=== PATIENT | male | born 1985 | race Caucasian/White ===

== ENCOUNTER 2020-11-13 14:29 | Outpatient (RCR) | payer MEDICARE, SELFPAY | END 2020-12-18 23:59 | LOC: IMMUN 14:29 | PROVIDERS: Visit Provider Family Medicine | DX: Z23 Encounter for immunization (principal) | CPT/HCPCS: 0001A; 0002A; 91300 ==

== ENCOUNTER 2022-02-17 13:09 | Emergency (ER) | payer OTHER, SELFPAY ==
[2022-02-17 13:11] VITALS: BP 146/115; PULSE 82; RESP 18; TEMP 36.6; O2SAT 100; BMI 28.7
--- NOTE | 2022-02-17 13:32 | EKG12_ITS ---
Test Reason : sob/cp Blood Pressure : / mmHG Vent. Rate : 078 BPM Atrial Rate : 078 BPM P-R Int : 140 ms QRS Dur : 096 ms QT Int : 356 ms P-R-T Axes : 037 050 020 degrees QTc Int : 405 ms Normal sinus rhythm with sinus arrhythmia Normal ECG Confirmed by RADHA RED, WILY ([id number]), newspaper managing editor SIERRA HOLLIS ([id number]) on 02/19/2022 9:41:01 AM Referred By: Tru Confirmed By:WILY GARCIA MD
--- NOTE | 2022-02-17 13:34 | EDS_ITS ---
HPI History of Present Illness Chief Complaint: Shortness of Breath Narrative Narrative: Patient presents with shortness of breath and chest pain that has had since 1030 last evening, over 12 hours ago. He is concerned because he states he has family history of heart attack in his father less than age 55. No exacerbating or alleviating factors. He states he felt short of breath mildly lightheaded and began having chest pain. He is a smoker. He denies any leg swelling. No DVT or PE risk factors. No fevers or chills. PFSH PFSH Medical History SOB (shortness of breath) Home Medications NK 02/17/22 [History Last Taken Unknown] Allergy/AdvReac Type Severity Reaction Status Date / Time Penicillins [PCN] Allergy PT UNSURE Verified 02/17/22 13:11 OF REACTION Social History Smoking Status: Unknown if ever smoked ROS ROS ED ROS Narrative Constitutional: No fever, no chills. HEENT: No sore throat. No neck pain. No loss of vision. No rhinorrhea. Cardiovascular: Positive chest pain. No palpitations. No pedal edema. Respiratory: Rare cough, positive shortness of breath. Abdominal: No abdominal pain. No nausea. No vomiting. Genitourinary: No dysuria. No hematuria. Musculoskeletal: No myalgias. No arthralgias. Neurologic: No headaches. No dizziness. No lightheadedness. Skin: No rash. No change in color. Psychiatric: No depression. No anxiety. EXAM Physical Exam Narrative Exam Narrative: Afebrile. Vital signs noted. HEENT: Normocephalic. Atraumatic. PERRL, EOMI. Neck soft and supple. No point tenderness or step off. Cardiovascular: Regular rate and rhythm. No murmurs, rubs, or gallops appreciated. Respiratory: No tachypnea. Lungs clear to auscultation bilaterally. Gastrointestinal: Abdomen soft, nontender, with normoactive bowel sounds. No rebound or guarding. Neurological: Awake. Alert. Nonfocal, nonlateralizing. Skin: No rash. Normal color. No pallor. Musculoskeletal: No pedal edema. Full range of motion extremities. Const Vital Signs: 02/17/22 13:11 02/17/22 13:34 02/17/22 15:18 Temperature 97.9 F Temperature Source Temporal Pulse Rate 82 100 Respiratory Rate 18 14 Blood Pressure 146/115 H Blood Pressure Mean 125 Pulse Ox 100 100 Oxygen Delivery Method Room Air Room Air Room Air MDM MDM MDM Narrative Medical decision making narrative: Chest pain work-up was pursued. EKG demonstrates normal sinus rhythm at 78 bpm with sinus arrhythmia but no acute ST changes. No STEMI. CBC is grossly normal with a normal white count and normal hemoglobin. D-dimer negative at less than 0.27. Electrolyte panel is grossly unremarkable. High-sensitivity troponin 4. This is greater than a 6-hour troponin. I do feel that he has been ruled out by biomarkers. Chest x-ray interpreted by myself shows no evidence of acute finding. There is no pneumothorax. At this point in time, I do feel he be discharged safely home with follow-up. He is to see his primary care physician. Smoking cessation was discussed. Disposition is discharged home in stable condition. Return instructions were reviewed. Lab Data Labs: Laboratory Results - last 24 hr 02/17/22 02/17/22 02/17/22 13:40 13:40 13:40 WBC 5.2 RBC 4.85 Hgb 14.8 Hct 42.6 MCV 87.8 MCH 30.5 MCHC 34.7 RDW Std Deviation 39.1 RDW Coeff of Rita 12.3 Plt Count 253 MPV 8.3 Immature Gran % (Auto) 0.400 Neut % (Auto) 58.0 Lymph % (Auto) 30.1 Hodgeman % (Auto) 8.2 Eos % (Auto) 2.5 Baso % (Auto) 0.8 Absolute Neuts (auto) 3.0 Absolute Lymphs (auto) 1.55 Nucleated RBC % 0 D-Dimer Quant (PE/DVT) < 0.27 L Sodium 139 Potassium 3.9 Chloride 105 Carbon Dioxide 29.0 Anion Gap 5 BUN 10 Creatinine 0.88 Estim Creat Clear Calc 122.13 Est GFR (MDRD) Af Amer 127 Est GFR (MDRD) Non-Af 105 BUN/Creatinine Ratio 11.4 Glucose 99 Calcium 8.8 Troponin I High Sens 4 Radiography Diagnostic Testing: Clinical Impression(s) from Imaging Studies Chest X-Ray 02/17/22 13:51 IMPRESSION: There are no acute findings. Electronically Signed: Nabil Goldstein MD at 14:18 EDT Reading Location ID and State: [facility] / [place] , Service support , Discharge Plan Triage Chief Complaint: Shortness of Breath Other Complaint: Cough Chest Pain Dizziness ED Provider: Usama Ott Dx/Rx/DC Orders Clinical Impression: SOB (shortness of breath), Chest pain Instructions: ED Chest Pain, Uncertain Cause, ED Dyspnea Prescriptions: No Action NK Primary Care Provider: MOSHE WARREN Referrals: NOT,DEFINED [Non-Staff] - Activity Restrictions/Additional Instructions: Stop smoking. Follow-up with your primary care physician for outpatient stress testing hopefully within the next week. Return with increased chest pain, shortness of breath, new or worsening symptoms. Disposition Disposition: Home, Self Care
--- NOTE | 2022-02-17 13:35 | NURSING ---
NO OLD EKGS
[2022-02-17] MEDS: Aspirin 81 MG TAB.CHEW 324 MG PO (13:39)
[2022-02-17 13:50] LABS: Absolute Lymphocyte Count 1.55 X10^3/uL (0.83-4.51); Basophil# 0.04 X10^3/uL; Basophil% 0.8 % (0-1); Eosinophil# 0.13 X10^3/uL; Eosinophils% 2.5 % (0-5); Hematocrit 42.6 % (40-54); Hemoglobin 14.8 g/dL (13.0-16.5); Lymphocyte # 1.55 X10^3/ul (0.83-4.51); Lymphocyte % 30.1 % (19-41); Mean Corp Hgb Conc 34.7 g/dL (32-36); Mean Corpuscular Hgb 30.5 pg (27.0-32.0); Mean Corpuscular Volume 87.8 fL (80-94); Mean Platelet Vol. 8.3 fl (6.2-12.0); Monocyte# 0.42 X10^3/uL; Monocyte% 8.2 % (0-10); NRBC Flagged by Analyzer 0 % (0-5); Neutrophil # 2.99 X10^3/uL (2.7-7.7); Platelet Count 253 K/mm3 (150-450); RBC Distribution Width CV 12.3 % (11.6-14.6); RBC Distribution Width SD 39.1 fl (35.1-43.9); Red Blood Count 4.85 M/mm3 (4.6-6.2); White Blood Count 5.2 K/mm3 (4.4-11.0)
--- NOTE | 2022-02-17 13:51 | RAD_ITS ---
STUDY: X-RAY CHEST REASON FOR EXAM: Male, 36 years old. CHEST PAIN chest pain TECHNIQUE: XR Chest 1 View COMPARISON: None FINDINGS: There is no demonstrated pleural abnormality. Normal size heart. Normal mediastinum and cory. Normal visualized pulmonary arteries. Normal visualized aortic arch and descending thoracic aorta. Normal visualized thoracic spine. Normal visualized ribs, clavicles, and shoulders. There is no demonstrated abnormality of the visualized soft tissue structures of the upper abdomen. RAD/Chest 1 View (Portable) IMPRESSION: There are no acute findings. Electronically Signed: Nabil Goldstein MD at 14:18 EDT ,
[2022-02-17 14:07] LABS: D-Dimer Quantitative (DVT/PE) < 0.27 FEU/ug/m (0.27-0.49)
[2022-02-17 14:09] LABS: Anion Gap 5 (5-15); BUN 10 mg/dL (7-18); BUN/Creat Ratio 11.4 RATIO (10-20); Calcium,Total 8.8 mg/dL (8.5-10.1); Chloride 105 mmol/L (98-107); Creatinine, Serum 0.88 mg/dL (0.70-1.30); EST Glomerular Filtration Rate 105 mL/min (>60); Est Glom Filt Rate - Afr Amer 127 mL/min (>60); Estimated Creatinine Clearance 122.13 ml/min; Glucose 99 mg/dL (74-106); Potassium 3.9 mmol/L (3.5-5.1); Sodium Level 139 mmol/L (136-145); Troponin-I HS (w/2H Reflex) 4 pg/mL (3.0-78.0)
[2022-02-17 15:18] VITALS: PULSE 100; RESP 14; O2SAT 100
--- NOTE | 2022-02-17 15:27 | ED.RN ---
PT REPORTS PAIN RETURNING. SOB MORE MILD THEN LA EPISODE.DR Miguel VO
[2022-02-17 15:47] LABS: Reflex Troponin-HS? (from REC) Y
== END 2022-02-17 16:34 | disposition home or self-care (01) ==
PROVIDERS: Emergency Provider Emergency Medicine; PCP Nurse Practitioner; Visit Provider Emergency Medicine
DX: R06.02 Shortness of breath (principal); R42 Dizziness and giddiness; R07.9 Chest pain, unspecified; I49.8 Other specified cardiac arrhythmias; F17.200 Nicotine dependence, unspecified, uncomplicated
CPT/HCPCS: 71045; 80048; 84484; 85025; 85379; 93005; 99285; A4216